=== PATIENT | female | born 1945 | race Caucasian/White ===

== ENCOUNTER → 2017-04-29 | Outpatient (CLI) | payer MEDICARE ==
[~2017-04-29] MED LIST: ALPHA LIPOIC300 MG PO; AMLODIPINE5 MG PO; ASPIRIN325 MG PO; BENAZEPRIL20 MG PO; COQ10; FISH OIL 10001000 MG PO; GLUCOSAMINE PO; MSM PO; OCUVITE1 TA1 PO; SELENIUM200 MC2 PO; SELENIUM200 MCG PO; SINGULAIR10 M1 PO; TRAVATAN 0.0042.5 M1 INTRAOC; TUMERSAID TABL1 EACH PO; VITAMIN C; VITAMIN C100 M3 PO; VITAMIN D3400 IU PO; VITAMIN E400 I1 PO; [UNRECOGNIZED DRUG - CODE] PO
--- NOTE | ~2017-04-29 | ST ---
[place], [place] EXERCISE STRESS TEST REPORT NAME: KURT FRANKEL UNIT #: [id number] ROOM: DOCTOR: DAT GERMAN MD BIRTHDATE: [birth year] DOS: 04/29/2017 EXERCISE AND PHARMACOLOGIC STRESS TEST. REFERRED BY: Dr. Diaz, nuclear process engineer in [place]. INDICATIONS: History of heart disease, cardiac risk factors, atypical chest pain. PROCEDURE: The patient walked on a full Beny protocol stress test for 5 minutes 35 seconds and had to stop at that point because of dyspnea and fatigue. She had only achieved a maximum heart rate of 119, which represented 79% of her maximum predicted heart rate. In order to make sure that we did obtain a diagnostic test, she was given regadenoson 0.4 mg while she continued to walk. She did not have any diagnostic electrocardiographic changes, symptoms of dyspnea and nausea occurred. She did have frequent PVCs with the exercise test. 40 seconds after the infusion of regadenoson, she was given radionuclide intravenously. IMPRESSION: 1. Well-tolerated exercise/pharmacologic stress test. No diagnostic electrocardiographic changes occurred at the level of exercise achieved. 2. Radionuclide administered. Please see the separate imaging report for further details of the patient's stress test results. DAT GERMAN MD CM:STRESS:EXERCISE STRESS TEST REPORT [id number] DAT GERMAN MD
== END | disposition home or self-care (01) ==
LOC: CARD 07:48
DX: I25.10 Atherosclerotic heart disease of native coronary artery without angina pectoris (principal); R94.31 Abnormal electrocardiogram [ECG] [EKG]; I10 Essential (primary) hypertension; I25.2 Old myocardial infarction; E78.2 Mixed hyperlipidemia; Z78.0 Asymptomatic menopausal state; Z72.0 Tobacco use

== ENCOUNTER 2020-06-02 11:09 | Emergency (ER) | payer MEDICARE ==
[~2020-06-02] VITALS: Wt 50.3 kg
== END 2020-06-02 12:11 | disposition home or self-care (01) ==
LOC: ED 11:09
DX: S61.252A Open bite of right middle finger without damage to nail, initial encounter (principal); I25.2 Old myocardial infarction; I25.10 Atherosclerotic heart disease of native coronary artery without angina pectoris; I10 Essential (primary) hypertension; Z23 Encounter for immunization; Z88.1 Allergy status to other antibiotic agents; Z91.040 Latex allergy status; Z79.899 Other long term (current) drug therapy; Z79.82 Long term (current) use of aspirin; W55.81XA Bitten by other mammals, initial encounter; Y93.89 Activity, other specified; Y92.89 Other specified places as the place of occurrence of the external cause; Y99.8 Other external cause status

== ENCOUNTER 2020-06-05 17:13 | Emergency (ER) | payer MEDICARE ==
[~2020-06-05] VITALS: Ht 165.1 cm; Wt 50.3 kg
== END 2020-06-05 17:39 | disposition home or self-care (01) ==
LOC: ED 17:13
DX: Z23 Encounter for immunization (principal); I25.2 Old myocardial infarction; I25.10 Atherosclerotic heart disease of native coronary artery without angina pectoris; I10 Essential (primary) hypertension; J44.9 Chronic obstructive pulmonary disease, unspecified; E78.00 Pure hypercholesterolemia, unspecified; Z88.8 Allergy status to other drugs, medicaments and biological substances; Z79.899 Other long term (current) drug therapy

== ENCOUNTER 2020-06-09 12:28 | Emergency (ER) | payer MEDICARE ==
[~2020-06-09] VITALS: Ht 165.1 cm; Wt 50.3 kg
== END 2020-06-09 13:33 | disposition home or self-care (01) ==
LOC: ED 12:28
DX: Z23 Encounter for immunization (principal); Z88.1 Allergy status to other antibiotic agents; Z91.040 Latex allergy status

== ENCOUNTER 2020-06-16 10:21 | Emergency (ER) | payer MEDICARE ==
[~2020-06-16] VITALS: Ht 165.1 cm; Wt 50.3 kg
== END 2020-06-16 11:03 | disposition home or self-care (01) ==
LOC: ED 10:21
DX: Z23 Encounter for immunization (principal); Z79.899 Other long term (current) drug therapy; Z79.82 Long term (current) use of aspirin

== ENCOUNTER 2021-03-21 16:14 | Emergency (ER) | payer MEDICARE ==
[~2021-03-21] VITALS: Ht 162.6 cm; Wt 51.3 kg
[2021-03-21] MEDS ORDERED: ALPHAGAN P 15 M15 M1 OPH (16:45)
[2021-03-21] MEDS ORDERED: AMLODIPINE-BEN1 EACH PO (16:46)
[2021-03-21] MEDS ORDERED: ZAFIRLUKAST20 M2 PO (16:46)
[2021-03-21] MEDS ORDERED: [UNRECOGNIZED DRUG - OTHER] PO (16:48)
[2021-03-21] MEDS ORDERED: ZYRTEC-D TABLE1 EACH PO (16:48)
[2021-03-21 17:17] LABS: BASO % 0.2 % (0.0-1.0); EOS % 0.3 % (1.0-4.0); HEMATOCRIT 44.1 % (37.0-47.0); LYMPH # 0.8 10*3/uL (1.3-4.4); LYMPH % 8.2 % (27.0-41.0); MEAN CELL VOLUME 94.2 fl (81.0-99.0); MEAN CORPUSCULAR HGB 31.4 pg (27.0-31.0); MEAN CORPUSCULAR HGB CONC 33.3 g/dl (33.0-37.0); MEAN PLATELET VOLUME 10.7 fl (9.6-12.3); MONO # 0.7 10*3/uL (0.1-1.0); MONO % 6.3 % (3.0-9.0); NEUT # 8.7 10*3/uL (2.3-7.9); NEUT % 84.8 % (47.0-73.0); PLATELET COUNT AUTOMATED 219 10*3/uL (130-400); RED BLOOD COUNT 4.68 10*6/uL (4.10-5.10); RED CELL DISTRI WIDTH 12.1 % (0-14.5); WHITE BLOOD COUNT 10.3 10*3/uL (4.8-10.8)
[2021-03-21 17:36] LABS: ALBUMIN 3.8 gm/dl (3.1-4.5); ALKALINE PHOSPHATASE 98 U/L (45-117); BUN 19 mg/dl (7-24); CHLORIDE 103 mmol/L (98-107); CREATININE 0.63 mg/dL (0.55-1.02); SGOT/AST 23 IU/L (3-35); SGPT/ALT 29 U/L (12-78); SODIUM 139 mmol/L (136-145); TOTAL PROTEIN 7.2 gm/dL (6.4-8.2)
[2021-03-21 17:48] LABS: TROPONIN I < 0.015 ng/ml (<0.045)
[2021-03-21] MEDS ORDERED: PREDNISONE20 M1 PO (19:27)
[2021-03-21] MEDS ORDERED: ZITHROMAX250 MG PO (19:27)
== END 2021-03-21 19:54 | disposition home or self-care (01) ==
LOC: ED 16:14
PROVIDERS: Physician Assistant
DX: R06.00 Dyspnea, unspecified (principal); Z79.899 Other long term (current) drug therapy; Z88.8 Allergy status to other drugs, medicaments and biological substances

== ENCOUNTER → 2024-02-11 | Outpatient (CLI) | payer MEDICARE ==
[~2024-02-11] MED LIST changes: +ALPHAGAN P 15 M15 M1 OPH; +AMLODIPINE-BEN1 EACH PO; +PREDNISONE20 M1 PO; +ZAFIRLUKAST20 M2 PO; +ZITHROMAX250 MG PO; +ZYRTEC-D TABLE1 EACH PO; +[UNRECOGNIZED DRUG - OTHER] PO
== END | disposition home or self-care (01) ==
LOC: WOUNDCARE 14:05
PROVIDERS: ATTEND Nurse Practitioner Family
DX: S81.812A Laceration without foreign body, left lower leg, initial encounter (principal); S81.811A Laceration without foreign body, right lower leg, initial encounter; I73.9 Peripheral vascular disease, unspecified; I83.018 Varicose veins of right lower extremity with ulcer other part of lower leg; L97.812 Non-pressure chronic ulcer of other part of right lower leg with fat layer exposed; I83.028 Varicose veins of left lower extremity with ulcer other part of lower leg; L97.822 Non-pressure chronic ulcer of other part of left lower leg with fat layer exposed; L84 Corns and callosities; I11.0 Hypertensive heart disease with heart failure; I50.9 Heart failure, unspecified; I25.2 Old myocardial infarction; H40.9 Unspecified glaucoma; J44.9 Chronic obstructive pulmonary disease, unspecified; Z98.49 Cataract extraction status, unspecified eye; Z87.891 Personal history of nicotine dependence; W22.8XXA Striking against or struck by other objects, initial encounter; Y93.89 Activity, other specified; Y92.89 Other specified places as the place of occurrence of the external cause; Y99.8 Other external cause status

== ENCOUNTER → 2024-02-17 | Outpatient (CLI) | payer MEDICARE | END | disposition home or self-care (01) | LOC: WOUNDCARE 02:27 | PROVIDERS: ATTEND Nurse Practitioner Family | DX: S81.812D Laceration without foreign body, left lower leg, subsequent encounter (principal); S81.811D Laceration without foreign body, right lower leg, subsequent encounter; I73.9 Peripheral vascular disease, unspecified; I83.018 Varicose veins of right lower extremity with ulcer other part of lower leg; L97.812 Non-pressure chronic ulcer of other part of right lower leg with fat layer exposed; I83.028 Varicose veins of left lower extremity with ulcer other part of lower leg; L97.822 Non-pressure chronic ulcer of other part of left lower leg with fat layer exposed; L84 Corns and callosities; I11.0 Hypertensive heart disease with heart failure; I50.9 Heart failure, unspecified; I25.2 Old myocardial infarction; H40.9 Unspecified glaucoma; J44.9 Chronic obstructive pulmonary disease, unspecified; Z98.49 Cataract extraction status, unspecified eye; Z87.891 Personal history of nicotine dependence; W22.8XXD Striking against or struck by other objects, subsequent encounter ==